=== PATIENT | female | born 1970 | race Caucasian/White ===

== ENCOUNTER 2016-04-25 20:27 | Emergency (ER) | payer OTHER ==
[~2016-04-25] VITALS: Ht 160 cm; Wt 110.0 kg
[~2016-04-25 20:27] MED LIST: FER325 PO; LORA0.5T PO; LORA10TA3 PO; MELO-109 PO; METH750T2 PO
[2016-04-25 21:44] VITALS: Ht 160 cm; Wt 110.0 kg
[2016-04-25] MEDS ORDERED: HYDROmorphONE 1 MG/ML SYG IV STA (22:29)
[2016-04-25] MEDS ORDERED: ONDANSETRON 4 MG INJ IV STA (22:29)
--- NOTE | 2016-04-25 23:06 | RADRPT ---
PROCEDURE: XR Chest. CLINICAL INDICATION: Possible Upper GI Bleed TECHNIQUE: Single frontal chest x-ray. COMPARISON: None. FINDINGS: The patient is in lordotic position. This along with portable AP technique accentuates the size of the cardiomediastinal silhouette. There is appearance of minimal enlargement of the cardiac silhoue tte. ECG leads are projected over the chest. Degenerative changes in thoracic spine. No focal lung consolidation is seen. IMPRESSION: Appearance of minimal enlargement of the cardiac silhouette. Please see above. RPTAT: HJES .Keyshawn Torre MD, MD Date Time Electronically viewed and signed by .Keyshawn Torre MD, MD on 04/25/2016 23:06 .S/
[2016-04-25 23:14] LABS: MEAN CORPUSCULAR HEMOGLOBIN 13.9 pg (29.0-33.0); MEAN CORPUSCULAR VOLUME 48.5 fl (82.0-101.0); RED CELL DISTRIBUTION WIDTH 28.9 % (11.5-14.5); UNCORRECTED WBC 8.5 10^3/ul (4.8-10.8); WHITE BLOOD COUNT 8.5 10^3/ul (4.8-10.8)
[2016-04-25 23:26] LABS: RED BLOOD COUNT 4.56 10^6/ul (4.20-5.40)
[2016-04-25 23:27] LABS: CONDITION 1; HEMATOCRIT 22.1 % (37.0-47.0); HEMOGLOBIN 6.4 g/dl (12.0-16.0); LH ANALYZER COMMENTS 1; MEAN CORPUSCULAR HGB CONC 28.7 g/dl (32.0-37.0); MEAN PLATELET VOLUME 8.1 fl (7.4-10.4); PLATELET COUNT 219 10^3/UL (140-440); SUSPECT 1
[2016-04-26 00:06] LABS: EOSINOPHILS # 0.2 10^3/ul (0.0-0.5); LYMPHOCYTES # 1.7 10^3/ul (0.8-2.9); MONOCYTE # 0.7 10^3/ul (0.3-0.9)
[2016-04-26 00:07] LABS: PLATELET ESTIMATE PLT APPEAR ADEQUATE
[2016-04-26] MEDS ORDERED: ONDANSETRON 4 MG INJ IV STA (00:40)
[2016-04-26] MEDS ORDERED: HYDROmorphONE 1 MG/ML SYG IV STA (00:40)
[2016-04-26] MEDS ORDERED: METH-70 PO (01:05)
[2016-04-26] MEDS ORDERED: HYDR-902 PO (01:05)
[2016-04-26] MEDS ORDERED: FER325 PO (01:05)
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
[2016-04-26 05:04] VITALS: BP 158/79; PULSE 78; RESP 14; TEMP 98.2
== END 2016-04-26 05:05 | disposition home or self-care (01) ==
LOC: E/R 20:27
DX: D64.9 Anemia, unspecified (principal); R53.1 Weakness
CPT/HCPCS: 36415; 36430; 71010; 85025; 86850; 86900; 86901; 86920; 96374; 96375; 96376; J1170; J2405; P9016; Z7502